=== PATIENT | female | born 1945 | race Caucasian/White ===

== ENCOUNTER 2020-03-15 14:00 | Outpatient (CLI) | payer MEDICARE, SELFPAY ==
--- NOTE | ~2020-03-15 | XR_ITS ---
XR thoracic spine 2V 03/15/2020 14:41 Indication: Kyphosis. Chronic back pain. Procedure: 3 views thoracic spine Comparison: No prior studies for comparison. Findings: There is disc narrowing and endplate degenerative change at multiple thoracic levels. There is mild dextrocurvature of the thoracic spine. There are prominent marginal osteophytes in the lower thoracic and upper lumbar spine. No acute fracture or traumatic malalignment. No significant paraspi nal soft tissue abnormality. There is a moderate hiatal hernia. Impression: 1: Moderate thoracic spondylosis. 2: Moderate size hiatal hernia. Reviewed, dictated and finalized at location A. NEL ACCOUNT MANAGER Impression: 1: Moderate thoracic spondylosis. 2: Moderate size hiatal hernia.
--- NOTE | ~2020-03-15 | XR_ITS ---
XR lumbar spine 2-3V 03/15/2020 14:41 Indication: Back pain. Kyphosis. Procedure: 3 views lumbar spine Comparison: No prior studies for comparison. Findings: There is dextroscoliosis of the lumbar spine. There is disc narrowing at all lumbar levels. There are prominent marginal osteophytes at each level. There is moderate multilevel facet hypertrop hy. No acute fracture or traumatic malalignment. Sacral foramen are symmetric. There is atheroscleros is. Impression: 1: Moderate lumbar spondylosis with dextroscoliosis. Reviewed, dictated and finalized at location A. NOLOGIST Impression: 1: Moderate lumbar spondylosis with dextroscoliosis.
[2020-03-15 14:15] LABS: Hematocrit 41.8 % (35.0-42.0); Hemoglobin 13.1 g/dL (11.7-13.8); Mean Corpuscular HGB Conc 31.3 g/dL (32.0-36.0); Mean Corpuscular Hemoglobin 29.4 pg (27.0-31.0); Mean Corpuscular Volume 93.7 fL (78.0-102.0); Platelet Count Result 247 K/mm3 (150-420); Red Blood Count 4.46 M/mm3 (4.20-5.40); Red Cell Distribution Width 13.2 % (11.6-14.4); White Blood Count 6.6 K/mm3 (4.8-10.8)
[2020-03-15 15:46] LABS: Alanine Aminotransferase 22 U/L (14-59); Albumin Level 4.3 g/dL (3.4-5.0); Alkaline Phosphatase 77 U/L (46-116); Anion Gap 7 mmol/L (8-16); Aspartate Amino Transferase 33 U/L (15-37); Bilirubin,Total 0.2 mg/dL (0.00-1.00); Blood Urea Nitrogen 12 mg/dL (7-18); Calcium 9.8 mg/dL (8.5-10.1); Carbon Dioxide 32 mmol/L (21-32); Chloride 98 mmol/L (98-108); Estimated Glomerular Filt Rate > 60; Glucose 94 mg/dL (70-99); Osmolality Calculated 283 mOsm/kg (285-295); Potassium 4.3 mmol/L (3.5-5.1); Sodium 137 mmol/L (136-145); Total Protein 7.2 g/dL (6.4-8.2); Vitamin B12 707 pg/mL (193-986)
[2020-03-15 15:57] LABS: Folic Acid > 20.0 ng/mL (8.6->20)
== END 2020-03-15 14:01 | disposition home or self-care (01) ==
PROVIDERS: PCP Family Medicine; Visit Provider Family Medicine
DX: M40.209 Unspecified kyphosis, site unspecified (principal); J45.909 Unspecified asthma, uncomplicated; E53.8 Deficiency of other specified B group vitamins; L82.1 Other seborrheic keratosis
CPT/HCPCS: 36415; 72070; 72100; 80053; 82607; 82746; 85027; 88305

== ENCOUNTER 2020-03-18 08:41 | Outpatient (CLI) | payer MEDICARE, SELFPAY ==
--- NOTE | ~2020-03-18 | DEXA_ITS ---
Bone Density Report Name: Gricelda Guzman Age: 74 Sex: Female Ethnicity: White Date of : 1945 Indication: postmenopausal; screening for osteoporosis; height loss; history of glucocorticoids; asthma or emphysema; Referring Provider: Slick Corona Study: Bone densitometry was performed. Exam Date: March 18, 2020 Accession number: [id number] Bone Density: Region BMD T-score Z-score Classification AP Spine(L1-L4) 0.974 -0.7 1.8 Normal Femoral Neck (Left) 0.742 -1.0 1.2 Normal Total Hip (Left) 0.808 -1.1 0.8 Osteopenia Femoral Neck (Right) 0.696 -1.4 0.8 Osteopenia Total Hip (Right) 0.757 -1.5 0.4 Osteopenia Femoral Neck Mean 0.719 -1.2 1.0 Osteopenia Total Hip Mean 0.783 -1.3 0.6 Osteopenia World Health Organization criteria for BMD impression classify patients as: Normal (T-score at or above -1.0), Osteopenia (T-score between -1.0 and -2.5), or Osteoporosis (T-score at or below -2.5). 10-year Fracture Risk(1): Major Osteoporotic Fracture 18% Hip Fracture 4.3% Reported Risk Factors: [place] (), Neck BMD=0.696, BMI=25.1, glucocorticoids (1) FRAX(R) Version 3.08. Fracture probability calculated for an untreated patient. Fracture probability may be lower if the patient has received treatment. Clinical Information Provided by Patient: Has taken Glucocorticoids Has used the following medications: Vitamin D, Calcium Has the following medical conditions: Asthma or Emphysema Patient maximum height was 65 Menopause Age: 53 Does not regularly consume dairy products Onset of menses at age 14 Number of children 1 Impression: The patient has low bone mass, based on the Right Total Hip T-score. The patient has risk factors, including: history of glucocorticoid therapy. Discussion: BONE DENSITY IS LOW AT ONE OR MORE SKELETAL SITES. This patient's lowest T-score is low at one or more skeletal sites. It meets the World Health Organization's (WHO) criteria for ?low bone mass? (T-score between -1.0 and -2.5). The patient's 10-year risk of fracture as calculated by FRAX is less than the threshold where pharmacological therapy is recommended by the National Osteoporosis Foundation (NOF). However, all treatment decisions require clinical judgment and consideration of individual patient factors, including patient preferences, comorbidities, previous drug use, risk factors not captured in the FRAX model (e.g., frailty, falls, vitamin D deficiency, increased bone turnover, interval significant decline in bone density) and possible under or overestimation of fracture risk by FRAX. The patient should follow a healthful lifestyle (good nutrition with adequate calcium and vitamin D, and appropriate weight-bearing exercise). Follow-Up: Consider repeating this study in 2
== END 2020-03-18 08:42 | disposition home or self-care (01) ==
LOC: CHSIMG 08:43
PROVIDERS: PCP Family Medicine; Visit Provider Family Medicine
DX: Z78.0 Asymptomatic menopausal state (principal)
CPT/HCPCS: 77080

== ENCOUNTER 2024-11-26 07:16 | Outpatient (CLI) | payer MEDICARE, SELFPAY ==
[2024-11-26 07:31] LABS: Hematocrit 40.6 % (35.0-42.0); Hemoglobin 12.5 g/dL (11.7-13.8); Immature Granulocyte Percent A 0.2 % (0.0-0.0); Lymphocytes Absolute Auto 1.90 K/mm3 (1.10-4.50); Mean Corpuscular HGB Conc 30.8 g/dL (32-36); Mean Corpuscular Hemoglobin 26.0 pg (27.0-31.0); Mean Corpuscular Volume 84.4 fL (78.0-102.0); Nucleated Red Blood Cells Absolute Auto 0.00 K/mm3 (0.00-0.00); Nucleated Red Blood Cells Perc 0.0 % (0-0.0); Platelet Count Result 282 K/mm3 (150-420); Red Blood Count 4.81 M/mm3 (4.20-5.40); White Blood Count 5.6 K/mm3 (4.8-10.8)
[2024-11-26 08:19] LABS: Alanine Aminotransferase 23 U/L (6-35); Albumin Level 4.6 g/dL (3.5-5.1); Alkaline Phosphatase 74 U/L (38-126); Anion Gap 3 mmol/L (4-12); Aspartate Amino Transferase 37 U/L (14-36); Bilirubin,Total 0.5 mg/dL (0.2-1.3); Blood Urea Nitrogen 8 mg/dL (7-17); Calcium 10.0 mg/dL (8.4-10.2); Carbon Dioxide 30 mmol/L (22-30); Chloride 104 mmol/L (98-107); Cholesterol 202 mg/dL (0-200); Estimated Glomerular Filt Rate > 60; Glucose 91 mg/dL (65-110); HDL Direct 66 mg/dL; Osmolality Calculated 282 mOsm/kg (285-295); Potassium 4.6 mmol/L (3.4-5.0); Sodium 137 mmol/L (137-145); Total Protein 7.8 g/dL (6.3-8.2); Triglycerides 110 mg/dL (<150)
[2024-11-26 08:50] LABS: Thyroid Stimulating Hormone Reflex 1.950 uIU/mL (0.465-4.68)
[2024-11-26 09:25] LABS: Vitamin B12 732.0 pg/mL (239-931)
== END 2024-11-26 07:17 | disposition home or self-care (01) ==
PROVIDERS: PCP Family Medicine; Visit Provider Family Medicine
DX: J45.909 Unspecified asthma, uncomplicated (principal); E03.9 Hypothyroidism, unspecified; E53.8 Deficiency of other specified B group vitamins; Z13.6 Encounter for screening for cardiovascular disorders
CPT/HCPCS: 36415; 80053; 80061; 82607; 82746; 84443; 85025

== ENCOUNTER 2024-12-15 12:51 | Outpatient (CLI) | payer MEDICARE, SELFPAY ==
[2024-12-15 13:18] LABS: INR 1.0; Prothrombin Time 11.1 Seconds (9.50-12.1)
== END 2024-12-15 12:52 | disposition home or self-care (01) ==
LOC: CHSLAB 12:55
PROVIDERS: PCP Family Medicine; Visit Provider Family Medicine
DX: I48.91 Unspecified atrial fibrillation (principal); R10.9 Unspecified abdominal pain
CPT/HCPCS: 36415; 85610

== ENCOUNTER 2024-12-19 08:19 | Outpatient (CLI) | payer MEDICARE, SELFPAY ==
[2024-12-19 08:50] LABS: INR 1.2; Prothrombin Time 12.8 Seconds (9.50-12.1)
== END 2024-12-19 08:20 | disposition home or self-care (01) ==
LOC: CHSLAB 08:20
PROVIDERS: PCP Family Medicine; Visit Provider Family Medicine
DX: R10.9 Unspecified abdominal pain (principal)
CPT/HCPCS: 36415; 85610